=== PATIENT | male | born 1945 | race Caucasian/White ===

== ENCOUNTER 2016-10-13 14:31 | Inpatient (IN) | payer MEDICARE, MEDICAID ==
[~2016-10-13] VITALS: Ht 172.7 cm; Wt 74.1 kg
[2016-10-13 14:31] VITALS: BP 67/48; PULSE 120; RESP 18; O2SAT 97
[~2016-10-13 14:31] MED LIST: ALBU18HF IH; ASPI81TA2 PO; CARV3125 PO; CLOP75TA14 PO; FURO80TA PO; POTA20TA16 PO; SPIR25TA PO; WARF4TAB2 PO; ZES5 PO
--- NOTE | 2016-10-13 14:41 | ED.REPORT ---
HPI-Abd Pain M 40 and Over Date of Service Oct 13, 2016 ED Provider: Dr. Ch Pt is a 71 year old male with a hx of CVA, CHF, and HTN presenting to the ED via EMS due to vomiting blood onset today. Associated symptoms include diarrhea and abdominal pain. He denies any SOB. Pt is currently being treated for C. diff. Nursing Notes Stated Complaint: VOMITING BLOOD, DIARRHEA Chief Complaint: Male Abdominal Pain Nursing Notes Reviewed: Yes Allergies: Coded Allergies: acetaminophen (Verified Allergy, Unknown, 10/13/16) Scheduled Aspirin-Expunged Drug, Do Not Renew! (Aspirin-Expunged Drug, Do Not Renew!) 81 Mg Tablet 81 MG PO DAILY Carvedilol-Expunged Drug, Do Not Renew! (Carvedilol-Expunged Drug, Do Not Renew! ) 3.125 Mg Tablet 3.125 MG PO BID Clopidogrel-Expunged Drug, Do Not Renew! (Plavix-Expunged Drug, Do Not Renew!) 75 Mg Tablet 75 MG PO DAILY Furosemide-Expunged Drug, Do Not Renew! (Lasix-Expunged Drug, Do Not Renew!) 80 Mg Tablet 80 MG PO DAILY Lisinopril-Expunged Drug, Do Not Renew! (Lisinopril-Expunged Drug, Do Not Renew! ) 5 Mg Tablet 5 MG PO BID Potassium Chl-Expunged Drug, Do Not Renew! (V-Wot-Honjizyr Drug, Do Not Renew!) 20 Meq Tab.prt.sr 20 MEQ PO BID Spironolactone-Expunged Drug, Do Not Renew! (Spironolactone-Expunged Drug, Do Not Renew!) 25 Mg Tablet 12.5 MG PO BID Warfarin Sodium Inactive Drug Do Not Use (Coumadin Inactive Drug Do Not Use) 4 Mg Tablet 4 MG PO DAILY Scheduled PRN Albuterol-Expunged Drug, Do Not Renew! 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 Past Surgical History denies Smoking History Never Smoker Social History Alcohol Use: Denies alcohol use Other Social History: Ambulatory Status Wheelchair Review of Systems Unable to Obtain ROS Patient condition, Mental status Physical Exam Initial Vital Signs Vital Signs (First) Date Time Temp Pulse Resp B/P Pulse Ox O2 Delivery O2 Flow Rate FiO2 10/13/16 14:31 36.7 120 18 67/48 97 Room Air Initial VS: Reviewed, Vital signs abnormal Head / Eyes: Atraumatic, Normocephalic, PERRL Neck: Supple, Non-tender, Full range of motion Extremities: Vascular intact, Neuro intact, No swelling, No tenderness Skin: Warm, Dry, No cyanosis General/Constitutional: Awake, Alert Appearance / Presentation: Positive: Pale Nonverbal but shakes his head yes and no to questions. Respiratory / Chest: Breath sounds NL, Breath sounds = bilat, No respiratory distress, No rales, No rhonchi, No wheezing Cardiovascular: Regular rhythm Heart Rate / Rhythm: Positive: Tachycardia Abdomen: Soft, Non-tender, No distention ENT: Atraumatic Mouth: Positive: Mucous membranes dry Dried blood in the oropharynx. Rectum / Perineum: Atraumatic Rectal for Blood: Positive: Blood - occult heme + Neurologic: No sensory deficits No movement to left upper extremity Re-Eval/Medical Decision Med Decision/Clinical Course Spoke to the patient's . She states that she does not want him to have any blood products or pressors. She would like him to have fluids and medication. The patient has an upper GI bleed and is hypotensive upon arrival. He is complaining of epigastric pain. In looking at his Polst and speaking with his he is comfort measures only. The patient was given IV morphine as well as IV fluids. I spoke with the on 2 occasions, she is on her way to the hospital. Time of Eval: 15:57 Patient Status: Condition improved Re-Evaluation/Progress Note: Pt pain slightly improved. Discussed plan for admission. Consultation : Referral / Consult Name: Walker Whitlock DO Consulted With: Hospitalist Call Returned at: 16:25 Sr. Payroll Manager: Will see patient, Agrees with plan, Accepts admit Counseled Regarding: Diagnosis, Lab results, Need for follow-up, When/why to return to ED Discharge & Departure Primary Impression: GI bleed GI bleed type/associated pathology: unspecified gastrointestinal hemorrhage type Qualified Code: K92.2 - Gastrointestinal hemorrhage, unspecified Disposition: ADMITTED TO HOSPITAL Vital Signs - All Vital Signs Date Time Temp Pulse Resp B/P Pulse Ox O2 Delivery O2 Flow Rate FiO2 10/13/16 15:45 113 30 75/51 97 Room Air 10/13/16 14:31 36.7 120 18 67/48 97 Room Air )( All Prior VS Reviewed: Yes Condition: Improved Referrals: Barron Doss MD (PCP) Scribe Attestation Portions of this note were transcribed by Yina Barrios. I, Dr. Ch personally performed the history, physical exam and medical decision-making; I reviewed and confirmed the accuracy of the information in the transcribed note. Signed by : Ronaldo Dawson, 10/13/2016 and 1648. copies to: Barron Doss MD, Jena M MD Oct 13, 2016 14:41 YINA BARRIOS Oct 13, 2016 14:55
[2016-10-13] MEDS ORDERED: 0.9% Sodium Chloride 1,000 ML IV ONE ×2 (14:55→16:30)
[2016-10-13] MEDS ORDERED: Pantoprazole 4 mg/mL 10 mL Inj IVPUSH ONE (14:55)
[2016-10-13 15:45] VITALS: BP 75/51; PULSE 113; RESP 30; O2SAT 97
[2016-10-13] MEDS ORDERED: Haloperidol 5 mg/mL Inj IVPUSH PRN (16:35)
[2016-10-13] MEDS: 0.9% Sodium Chloride 1,000 ML IV SCH ×2 (16:35→23:38)
[2016-10-13 17:11] VITALS: BP 106/62; PULSE 104; RESP 20; O2SAT 96
--- NOTE | 2016-10-13 17:49 | NUR ---
Admission Pt arrived on [facility] to Rm 3003. Pt non verbal, however does respond to yes/no questions appropriately.No complains of increased pain. Alert to name. Christiana (spouse) is at bedside. Pt blind in left eye, left arm flaccid, left leg contracted. G tube on L abdomen.
[2016-10-13 17:50] VITALS: BP 102/67; PULSE 95; RESP 20; O2SAT 96
--- NOTE | 2016-10-13 17:55 | PCM.HPMED ---
Subjective Date of Service Oct 13, 2016 Primary Provider: Admitting Physician: Walker Whitlock DO Primary Care Physician: Barron Doss MD Attending Physician: Walker Whitlock DO Chief Complaint: GI bleed History of Present Illness: Max Pitt is a 71 year old non-verbal man with past medical history significant for CVA with left sided deficits requiring a PEG tube. History could not be obtained from the patient. He can show limited hand gestures and nod "yes" or "no." The patient was brought in to [facility] ED via EMS from his senior care due to hematemesis and melena and diarrhea that started today. The patient denied any shortness of breath but did note abdominal pain. Per discussion with ED physician the patient's DPOA, his , does not want to proceed with any invasive procedures and would only like to carry on with IV fluids and medications. She would not like to give him any blood products or check labs. The patient is currently under treatment for C. Difficile. In the ED he was noted to be hypotensive and was given one L of NS. Review of Systems: A review of systems could not be conducted thoroughly as the patient only answers limited questions and could not understand everything. Allergies Coded Allergies: acetaminophen (Verified Allergy, Unknown, 10/13/16) "Made him dizzy, he didn't like the way it made him feel." per pts Home Medications Per ER report: Scheduled Aspirin-Expunged Drug, Do Not Renew! (Aspirin-Expunged Drug, Do Not Renew!) 81 Mg Tablet 81 MG PO DAILY Carvedilol-Expunged Drug, Do Not Renew! (Carvedilol-Expunged Drug, Do Not Renew! ) 3.125 Mg Tablet 3.125 MG PO BID Clopidogrel-Expunged Drug, Do Not Renew! (Plavix-Expunged Drug, Do Not Renew!) 75 Mg Tablet 75 MG PO DAILY Furosemide-Expunged Drug, Do Not Renew! (Lasix-Expunged Drug, Do Not Renew!) 80 Mg Tablet 80 MG PO DAILY Lisinopril-Expunged Drug, Do Not Renew! (Lisinopril-Expunged Drug, Do Not Renew! ) 5 Mg Tablet 5 MG PO BID Potassium Chl-Expunged Drug, Do Not Renew! (X-Ybg-Pdoobfgy Drug, Do Not Renew!) 20 Meq Tab.prt.sr 20 MEQ PO BID Spironolactone-Expunged Drug, Do Not Renew! (Spironolactone-Expunged Drug, Do Not Renew!) 25 Mg Tablet 12.5 MG PO BID Warfarin Sodium Inactive Drug Do Not Use (Coumadin Inactive Drug Do Not Use) 4 Mg Tablet 4 MG PO DAILY Scheduled PRN Albuterol-Expunged Drug, Do Not Renew! (Albuterol-Expunged Drug, Do Not Renew!) 200 Puff/18 Gm Hfa.aer.ad 200 PUFF IH Q6 PRN PRN PMH HTN CVA February 2015 resulting in nonverbal and left hemiparesis Surgical History None reported Family History Unable to obtain Social History Hx Alcohol Use: No Hx Substance Use: No Hx Tobacco Use: No Smoking Status: Never Smoker Exam Vital Signs Vital Sign - Last Date Time Temp Pulse Resp B/P Pulse Ox O2 Delivery O2 Flow Rate FiO2 10/13/16 17:11 104 20 106/62 96 Room Air 10/13/16 14:31 36.7 Exam General: No acute distress, chronically ill appearing elderly male. HEENT: Normocephalic, atraumatic. External ears without defect. Pupils equal, round, and reactive to light and accommodation. Anicteric sclerae, moist conjunctivae, and no lid lag. Oropharynx free of erythema and cobble stoning with dry mucosa. Teeth absent. Neck: Supple with full range of motion. No jugular venous distension. No bruits. No lymphadenopathy or thyromegaly. Cardiovascular: Regular rate and rhythm with no murmurs, rubs, or gallops appreciated Pulmonary: Clear to auscultation bilaterally with no crackles, wheezes, or rhonchi. Normal respiratory effort with no use of accessory muscles. Abdomen: Hyperactive bowel tones present. Soft, nondistended. Tender to palpation. No hepatosplenomegaly or masses appreciated. Extremities: No clubbing, cyanosis, edema, or lymphadenopathy appreciated. Skin: Normal temperature, turgor, and texture; no rash, ulcers, or subcutaneous nodules appreciated. Neurological: Cranial nerves grossly intact. Left sided contractures. Psychiatric: Non-verbal. Assessment & Plan Max Pitt is a 71 year old non-verbal man with past medical history significant for CVA with left sided deficits requiring a PEG tube. History could not be obtained from the patient. He can show limited hand gestures and nod "yes" or "no." The patient was brought in to [facility] ED via EMS from his senior care due to hematemesis and melena and diarrhea that started today. Acute GI bleed, likely upper, present on admission -No labs completed as the patient's would not like to proceed with treatment -No blood products to be given -Patient admitted to comfort care -Morphine, Ativan, Haldol as needed for comfort measures -NS @150 cc/hr while the patient's arrives CVA with left sided-deficits -Patient has PEG tube -Will continue to feed patient as the patient's appears to want to continue with medications CODE STATUS: DNR/DNI Admit patient to inpatient status with anticipated length of stay >2 midnights due to severity of the patient's illness. Time spent 50 minutes Attending Statement I have seen and evaluated patient at bedside in addition to directly supervising care provided by resident physician. I agree with above documentation. Luz Marina Dowd DO Oct 13, 2016 17:54 Walker Whitlock DO Oct 14, 2016 08:43
--- NOTE | 2016-10-13 23:00 | NUR ---
SKIN Pt had multiple skin issue occurrences w/ initial head to toe assessment. Pt has brownish discolorations on buttocks and sacrum. Pt had reddened, blancheable areas on L medial elbow, L lateral knee, and L lateral malleolus--Mepilex dressings applied. Pt has hx of CVA w/ Left sided deficit. Pt had small abrasion-like redness on L anterior knee below patella. Pt also had redness on bottoms of feet and heels. Pt has been placed on P500 bed w/ Q2H turning. Continue to monitor.
[2016-10-13] MEDS ORDERED: METO25TA6 G-TUBE (23:27)
[2016-10-13] MEDS ORDERED: NITR0.4T6 SL (23:27)
[2016-10-13] MEDS ORDERED: PROBIOTIC G-TUBE (23:27)
[2016-10-13] MEDS ORDERED: GABA-502 G-TUBE (23:27)
[2016-10-13] MEDS ORDERED: ASPI325T32 G-TUBE (23:27)
[2016-10-13] MEDS ORDERED: BACL20TA G-TUBE (23:27)
[2016-10-13] MEDS ORDERED: LISI-567 G-TUBE (23:27)
[2016-10-13] MEDS ORDERED: MULT-1018 G-TUBE (23:27)
[2016-10-13] MEDS ORDERED: FUR20 G-TUBE (23:27)
[2016-10-13] MEDS ORDERED: LORA-302 G-TUBE (23:44)
[2016-10-13] MEDS ORDERED: DEXT1DRO8 BOTH_EYES (23:44)
[2016-10-13] MEDS ORDERED: FLUO20SO G-TUBE (23:44)
[2016-10-13] MEDS ORDERED: ZOF8 PO (23:44)
[2016-10-13] MEDS ORDERED: POLY17PO6 G-TUBE (23:44)
[2016-10-13] MEDS ORDERED: BISA-67 G-TUBE (23:44)
[2016-10-13] MEDS ORDERED: ASPI325T32 PO (23:44)
[2016-10-13] MEDS ORDERED: LORA2VIA28 G-TUBE (23:44)
[2016-10-13] MEDS ORDERED: ALBU2.5V4 INHALATION (23:44)
[2016-10-13] MEDS ORDERED: LOPE2TAB32 G-TUBE (23:44)
[2016-10-13] MEDS ORDERED: QUE9 G-TUBE (23:52)
[2016-10-13] MEDS ORDERED: LACT10SO27 G-TUBE (23:52)
[2016-10-13] MEDS ORDERED: SENN176S G-TUBE (23:54)
[2016-10-13] MEDS ORDERED: ASCO-294 G-TUBE (23:54)
[2016-10-14] MEDS ORDERED: Ondansetron 2 mg/mL 2 mL Inj IVPUSH PRN (01:05)
--- NOTE | 2016-10-14 01:40 | NUR ---
STOOLS & EMESIS Pt has had dark liquid stools x 2, incontinent. At approx 0100, pt retching. RN went into room, pt had vomited small amt of bright red blood. NOC resident called for prn Zofran. Pts called to notify of change in pts status. Pts wishes to start pt on Morphine gtt. Pts will be coming. NOC resident requested to be paged when pts arrives so that further discussion regarding comfort care can be addressed. Pt given prn IV Morphine, Zofran and Ativan. Pt is no longer vomiting at this time. Pts HOB up, pt resting at this time. Continue to monitor.
[2016-10-14] MEDS: Morphine 100 mg/100 mL NS 100 MG in IV Premix 1 EACH IV SCH (04:13)
[2016-10-14] MEDS: 0.9% Sodium Chloride 1,000 ML IV SCH (06:18)
--- NOTE | 2016-10-14 08:00 | NUR ---
Comfort care Pt resting quietly, appears comfortable, no signs of pain or agitation. Resp rate=18. HR=82. Morphine gtt infusing at 2.5 mg per hour. Repositioning for comfrt. No vitals at request of Christiana (spouse) will continue to monitor.
--- NOTE | 2016-10-14 10:45 | NUR ---
Tachypnea Pt repositioned, resp rate 24, 2 mg of IV morphine given IV push. Pt appears comfortable, will continue to monitor, Addendum: 10/14/16 at 1228 by ZEENAT JOY RN RR =24. 1 mg Ativan given IV push. Reassessment of RR = 18. Will continue to monitor, family at bedside.
--- NOTE | 2016-10-14 14:14 | PCM.PNMED ---
Subjective Date of Service Oct 14, 2016 Subjective Max Pitt is a 71 year old non-verbal man with past medical history significant for CVA with left sided deficits requiring a PEG tube. History could not be obtained from the patient. Hospital day #2. Patient's , Christiana, is at bedside. She requested that the patient not receive IV fluids and that he receives only medications to make him comfortable. Exam Vital Signs Vital Sign - Last Date Time Temp Pulse Resp B/P Pulse Ox O2 Delivery O2 Flow Rate FiO2 10/13/16 17:50 37.2 95 20 102/67 96 Room Air Intake and Output 10/13/16 10/13/16 10/14/16 Cumulative From/Thru 15:00 23:00 07:00 10/13/16 14:31 - 10/14/16 05:22 Intake Total 2000 ml 570 ml 2570 ml Balance 2000 ml 570 ml 2570 ml Intake Oral 0 ml 0 ml IV Total 2000 ml 570 ml 2570 ml # Voids 1 1 # Bowel Movements 5 5 Exam General: Obtunded, chronically ill appearing elderly male. HEENT: Dried blood at oropharynx with dry mucosa. Teeth absent. Neck: Supple. Cardiovascular: Regular rate and rhythm with no murmurs, rubs, or gallops appreciated Pulmonary: Clear to auscultation bilaterally with no crackles, wheezes, or rhonchi. Decreased respiratory effort with no use of accessory muscles. Abdomen: Hyperactive bowel tones present. Soft, nondistended. Extremities: No clubbing, cyanosis, or edema appreciated. Skin: Normal temperature, turgor, and texture Neurological: Left sided contractures. Psychiatric: Non-verbal. IVs and Medications Medications Reviewed: Medications were reviewed in detail Assessment & Plan Max Pitt is a 71 year old non-verbal man with past medical history significant for CVA with left sided deficits requiring a PEG tube. History could not be obtained from the patient. He can show limited hand gestures and nod "yes" or "no." The patient was brought in to [facility] ED via EMS from his correction due to hematemesis and melena and diarrhea that started today. Acute GI bleed, likely upper, present on admission -No labs completed as the patient's would not like to proceed with treatment -No blood products to be given -Patient admitted to comfort care -Morphine, Ativan, Haldol as needed for comfort measures -Stopped normal saline at request of patient's -Benadryl as needed -Continue comfort care measures CVA with left sided-deficits -Patient has PEG tube CODE STATUS: DNR/DNI Time spent 25 minutes Attending Statement I have seen and evaluated patient in addition to directly supervising care provided by resident physician. I agree with above documentation Shannon Renteria DO Oct 14, 2016 14:14 Walker Whitlock DO Oct 14, 2016 17:19
--- NOTE | 2016-10-14 14:23 | NUR ---
Morphine gtt IV morphine BT dose given x 2 in last 3 hours. Per Protocol Morphine gtt increased to 3 mls per hr. Will continue to monitor
[2016-10-14] MEDS ORDERED: Acetaminophen IV 1,000 MG in IV Premix 1 EACH IV ONE (14:40)
--- NOTE | 2016-10-14 14:41 | NUR ---
Temp Vital taken at request of Christiana. Temp of 101.8, made aware. New order for IV Tylenol given. Listed as allergy, Reviewed with Christiana, (spouse) reports, extra strength OTC generic Rx made "pt feel weird, kind of woozy and light headed". Christiana okay with Rx being given, Will continue to monitor Addendum: 10/14/16 at 1738 by ZEENAT JOY RN IV Tylenol given, re-assessment of temp = 101.9. Cool cloth placed on pt forehead, fan in room on low, sheet only over pt. Will continue to monitor
--- NOTE | 2016-10-14 16:07 | NUR ---
Social Work-attempted assessment: Data:EMR Reviewed. PT is a 71 y/o male who was admitted on 10/13/16 of upper GI Bleed per H&P. Pt's insurance is [facility] and [facility] supp and PCP is Barron Doss MD. EMR Reviewed. PT's readmission score is 2. SW attempted to complete assessment today. SW updated by floor SW that pt has been placed on comfort care and anticipated to pass at [facility]. SW will continue to follow. Assessment:Pt who is on comfort care. Plan:Pt who is on comfort care,anticipated to pass at [facility]. SW will continue to follow. JOHANNE Camara
[2016-10-14 20:19] VITALS: PULSE 68; RESP 18
[2016-10-14 22:19] VITALS: RESP 20
[2016-10-15] VITALS (7 sets, daily range): BP systolic 75; BP diastolic 50; PULSE 64–104; RESP 20–28; O2SAT 83–97
--- NOTE | 2016-10-15 06:38 | NUR ---
Comfort care Pt unresponsive throughout the shift, pt has been unresponsive since yesterday am per , no spontaneous movement except moving mouth when doing oral care. No agitation noted. RR18-20,shallow, regular at the beginning of the shift, progressively tachypnea RR 20-28, joaquin-chau with a few seconds pause sometimes. Morphine drip 3mg/hr, breakthrough doses given 3mgx2 for RR 24,RR down to 20 after 2 dozes. Bolus given 6mgx1,3mgx1 For RR 26-28 via IVBP (unable to scan and document of breakthrough dozes due to no such an order available at [facility]), bolus doses verified by charge nurse Aisha Corral, RR down to 20 at this time. SPO2 92-98% on RA most night, O2 2l applied this am for comfort. HR 60s-70s, very weak pulse, pale. No S/S of N/V/Abd discomfort. Incontinent bladder/bowel, black tarry stoolx3, mixed with urine, brief changed. T38.2,cold wash cloth applied on forehead. No s/s pain observed. Oral care and repositioning for comfort and per permission.
--- NOTE | 2016-10-15 10:54 | NUR ---
Social Work-initial assessment/ readiness for discharge: Data:See initial assessment. Pt is a 81 y/o male who was admitted on 10/13/16 for upper GI Bleed per H&P. Pt's insurance is [employer] and [employer] supp and PCP Is Barron Doss MD. EMR reviewed. Pt's readmission score is 2. 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 Pt does not have exterminator helper termite [employer] insurance or [place] benefits. DPOA/ advanced directive requested from the . SW spoke with Isabel at [facility] who confirms they would be able to accept pt back. Pt is on comfort care. Palliative care saw pt today and feel like he will likely pass within 24 hours. Paperwork placed in the chart. SW will continue to follow. Assessment:Pt who is on comfort care. Plan:Anticipate pt to pass at [facility], pt is on comfort care. Pt does come from [facility] SNF. Paperwork placed in the chart. SW will continue to follow. JOHANNE Camara Addendum: 10/15/16 at 1058 by MARYJANE GATES Amended: Links added.
--- NOTE | 2016-10-15 11:16 | NUR ---
Palliative Care Palliative Care received verbal order from Dr Dowd 10/15/16 to assist with possibly ?goals of care vs ?family support. Patient is a 71 year old non-verbal man with hx of CVA with left sided deficits requiring a PEG tube. He was admitted from his SNF 10/13/16 for care of acute GI bleed. Patient is on comfort care and is expected to pass at [facility]. Patient resides at [facility]. Christiana Pitt () [phone], Amanda Jess (daughter) [phone], Palliative Care to follow. Stephani Moy
--- NOTE | 2016-10-15 11:18 | NUR ---
Wound Care [facility] patient seen for evaluation of red area to left elbow and left lateral knee. Patient on comfort care at this time. Areas gently assessed with no evidence of pain to patient. Areas covered with Mepilex at this time. Patient found with blanchable redness to left elbow and hypopigmented area to lateral left knee. Both areas appear to be scar tissue from previous skin injury. Patient with heels and left elbow floated. Recommend continued use of Mepilex to protect and continued floating of heels for protection. Patient also currently using P500 bed. No further wound care recommendations at this time. Please reconsult wound care if further needs arise. Addendum: 10/15/16 at 1122 by LESLIE SETHI Addendum - red area to left elbow and hypopigmented area to lateral left knee are not pressure ulcers at this time.
[2016-10-15] MEDS ORDERED: Acetaminophen IV 1,000 MG in IV Premix 1 EACH IV PRN (11:40)
[2016-10-15] MEDS: Morphine 100 mg/100 mL NS 100 MG in IV Premix 1 EACH IV SCH (11:45)
--- NOTE | 2016-10-15 11:49 | PCM.CONPAL ---
Date of Service Oct 15, 2016 Date of Hospital Admission: Oct 13, 2016 at 16:55 Date of Palliative Consult: Oct 15, 2016 Requesting Provider: Luz Marina Dowd DO Reason Palliative Care Consult: Other Symptoms, Goals of Care Discussion Hospital Unit @time of consult: Medical/Pediatric Care Palliative Care Recommendation Summary of palliative recommendations: -Symptom management (Pain/other) GI bleed but patient seems to be actively dying. Will meet with his that afternoon. GOC seem set for comfort measures. Will continue his IV morphine and add IV acetaminophen PRN Option re returning to [place]-would require changing from IV to PEG meds and I suspect he will before this could be accomplished and observed. Reviewed goal of continuing IV medications with both patient's and case management. Health care team including nursing believes patient is likely to in the next 24 hours -DPOA/Advanced Directives/POLST-DNR/DNI and comfort care -Family/emotional support-His but also many friends and family visiting -Spiritual support-his has extensive support from family as well as her orthodoxy Problems: End of Life Preferences Comfort care and end-of-life Resuscitation Status Resuscitation Status: DNR/DNI:Do Not Resuscitate/Intubate Limited Interventions: Medications and IV Fluid POLST Updates/Changes Artificially Admin Nutrition: No Artifical Nutrition by Tube (feedings have been discontinued) POLST Discussed with: Health Care Agent (DPOAHC), Spouse/Other . Advanced Care Planning Address: Comfort care Symptom management: Nausea, Pain Pt History History of Present Illness Max Pitt is a 71 year old non-verbal man with past medical history significant for CVA with left sided deficits requiring a PEG tube. History could not be obtained from the patient. He can show limited hand gestures and nod "yes" or "no." The patient was brought in to [facility] ED via EMS from his skilled nursing due to hematemesis and melena and diarrhea that started today. The patient denied any shortness of breath but did note abdominal pain. Per discussion with ED physician the patient's DPOA, his , does not want to proceed with any invasive procedures and would only like to carry on with IV fluids and medications. She would not like to give him any blood products or check labs. The patient is currently under treatment for C. Difficile. In the ED he was noted to be hypotensive and was given one L of NS. PALLIATIVE CARE NOTE 71 yo patient who was nonverbal on admit but apparently able to make some interactions admitted for GI bleed. Decision by his based on his poor QOL was to do no evaluation and treat for comfort only. He has not had labs, is now on IV MS for comfort and BP has declined. His is not available at this time for discussion-her stated goal to staff was for comfort and if could not be on present comfort meds at [place] then asked that he be allowed to here. I presume the plan was to see if he improved with just fluids but he has continued to deteriorate and is now febrile. 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 EF 15-20%--improved to 40-45% with followup CVA with PEG placement 2014 Social History Occupation: retired Social Support: Living Situation: LTC at [facility] since CVA 2014 Spiritual Support Spiritual Support not obtainable Responsive Patient Symptoms Nausea: Moderate Delirium at baseline Other admitted with NV and diarrhea and evidence of gross GI bleed Palliative Performance Scale PPS Patient Status: Current PPS Ambulation: Totally Bed PPS Self-Care: Total Care Performance Scale: 10% Allergy Allergies Reviewed: Yes (acetaminophen-said to cause dizziness but has tolerated IV dosing since admit) Medications Current Medications: Current Medications Morphine Sulfate 2 mg 2 mg Q15M PRN IVPUSH Last administered on 10/14/16 01:02 ; Admin Dose 2 MG; Start 10/13/16 at 14:55; Stop 10/14/16 at 03:48; Status DC Sodium Chloride 1,000 ml @ 150 mls/hr Q6H40M IV Last administered on 10/13/16 16:35; Admin Dose 150 MLS/HR; Start 10/13/16 at 16:35; Stop 10/14/16 at 12:38; Status DC Morphine Sulfate 1-2 mg Q15M PRN IVPUSH; Start 10/13/16 at 16:35; Stop at 03:56; Status DC Lorazepam 1 mg Q4H PRN IVPUSH Last administered on 10/14/16 11:47; Admin Dose 1 MG; Start 10/13/16 at 16:35 Haloperidol Lactate give 1 or 2 depend... Q4 PRN IVPUSH Last administered on 05:01; Admin Dose 2 MG; Start 10/13/16 at 16:35 Ondansetron HCl 4 mg Q8H PRN PO; Start 10/14/16 at 01:00 Ondansetron HCl 4 mg Q4H PRN IVPUSH Last administered on 10/14/16 01:10; Admin Dose 4 MG; Start 10/14/16 at 01:05 Morphine Sulfate 2 mg Q1H PRN IVPUSH Last administered on 10/14/16 16:22; Admin Dose 2 MG; Start 10/14/16 at 03:50 Lorazepam 2 mg Q5M PRN IVPUSH; Start 10/14/16 at 03:50 Diphenhydramine HCl 25 mg Q6H PRN IVPUSH; Start 10/14/16 at 12:10 Scheduled ([liquid probiotic]) 30 ML G-TUBE BID Ascorbate Calcium (Vitamin C) 500 Mg Tablet 500 MG G-TUBE DAILY Aspirin (Aspirin) 325 Mg Tablet 325 MG G-TUBE DAILY Baclofen (Baclofen) 20 Mg Tablet 20 MG G-TUBE TID Fluoxetine Oral Soln (Fluoxetine Oral Soln) 20 Mg/5 Ml Solution 40 MG G-TUBE DAILY Furosemide (Furosemide) 20 Mg Tab 20 MG G-TUBE Q2DAY Gabapentin (Gabapentin) 300 Mg Capsule 300 MG G-TUBE BID Lisinopril (Lisinopril) 20 Mg Tablet 20 MG G-TUBE DAILY Metoprolol Tartrate (Metoprolol Tartrate) 25 Mg Tablet 12.5 MG G-TUBE BID Multivitamin (Multi Vitamin Daily) 1 Each Tablet 1 EACH G-TUBE DAILY Scheduled PRN Albuterol Neb Soln (Albuterol Neb Soln) 2.5 Mg/3 Ml Vial.neb 2.5 MG INHALATION Q4H PRN PRN For Shortness of Breath Aspirin (Aspirin) 325 Mg Tablet 650 MG PO PRN HIGH TEMP Bisacodyl (Dulcolax) 5 Mg Tablet.dr 5 MG G-TUBE DAILY PRN PRN For Constipation Cholestyramine (Cholestyramine Packet) 4 Gm Packet 4 GM G-TUBE DAILY PRN PRN For Diarrhea or Loose Stool Dextran 70/Hypromellose/Pf (Artificial Tears Drops) 1 Each Droperette 1 DROP BOTH_EYES TID PRN PRN For Eye Irritation Lactulose (Lactulose) 10 Gm/15 Ml Solution 10 GM G-TUBE QID PRN PRN For Constipation Loperamide (Loperamide) 2 Mg Tablet 2 MG G-TUBE Q4H PRN PRN For Diarrhea or Loose Stool Lorazepam (Ativan) 2 Mg/1 Ml Vial 2 MG G-TUBE Q2H PRN PRN For Seizure Lorazepam (Ativan) 0.5 Mg Tablet 0.5 MG G-TUBE Q2H PRN PRN For Anxiety Nitroglycerin SL (Nitroglycerin SL) 0.4 Mg Tab.subl 0.4 MG SL Q5MIN x 3 doses PRN PRN For Chest Pain Ondansetron (Zofran) 8 Mg Tablet 8 MG PO Q8H PRN PRN For Nausea Polyethylene Glycol 3350 (Miralax) 17 Gm Powd.pack 17 GM G-TUBE DAILY PRN PRN Abdominal Cramps Senna [place] Extract (Senna) 176 Mg/5 Ml Syrup 352 MG G-TUBE DAILY PRN PRN Bowel Management Objective Findings Exam Vital Sign - Last Date Time Temp Pulse Resp B/P Pulse Ox O2 Delivery O2 Flow Rate FiO2 10/15/16 10:56 39.1 104 24 75/50 83 Room Air 10/15/16 06:04 2.00 Intake and Output 10/14/16 10/14/16 10/15/16 Cumulative From/Thru 15:00 23:00 07:00 10/13/16 14:31 - 10/15/16 06:06 Intake Total 0 ml 504 ml 3074 ml Balance 0 ml 504 ml 3074 ml Intake Oral 0 ml 0 ml IV Total 504 ml 3074 ml # Voids 0 1 # Bowel Movements 2 7 Objective BP 75-88/ now febrile General: Unresponsive Heart: Dysrhythmia Present, Other (no radial or pedal pulses noted) Lungs: Diminished Abdomen: Soft, PEG/Feeding tube in place (but receiving no medications or fluids and nourishment through tube) Extremities: No Edema Skin: Wounds/Lacerations (covered on L elbow and L hip) Lab/Diagnostics Lab and Imaging results reviewed in detail in EMR. Patient/Family Conference Members Present Family Members Present Medical Team Members Present? Shaneka AVILA PC Discussion/Goals of Care Discussion FAMILY UNDERSTANDING OF DISEASE: Patient's well aware of severity of disease terminal state and that the patient is actively dying. Her request is comfort only. She does not believe that further intervention and treatment to be would be to his benefit. She recounts that he had been on hospice and pain management through his PEG tube took a couple of weeks to be on top of. She hopes that he can be managed in hospital with IV morphine. Time spent Total time 50 minutes; >50% face to face with patient and/or family, providing counselling regarding plans and recommendations, and in care coordination with his/her medical teams. Including review of med management, discussion with his . I also spent an additional [ ] minutes counseling for advanced care planning with the patient/the patients family/the surrogate decision maker. copies to: Barron Doss MD, Deborah A MD Oct 15, 2016 11:48 I also spent an additional [ ] minutes counseling for advanced care planning with the patient/the patients family/the surrogate decision maker. Anna Francis MD Oct 15, 2016 11:48
--- NOTE | 2016-10-15 12:48 | NUR ---
Resp Rate Pt resp rate = 24, 3 mg morphine given IV push per comfrt care orders. Pt resting quietly, appears comfortable, will continue to monitor.
--- NOTE | 2016-10-15 16:04 | PCM.PNMED ---
Subjective Date of Service Oct 15, 2016 Subjective Max Pitt is a 71 year old non-verbal man with past medical history significant for CVA with left sided deficits requiring a PEG tube. History could not be obtained from the patient. Hospital day #3. Patient's , Crhistiana, is at bedside. Patient remains unresponsive. Exam Vital Signs Vital Sign - Last Date Time Temp Pulse Resp B/P Pulse Ox O2 Delivery O2 Flow Rate FiO2 10/15/16 10:56 39.1 104 24 75/50 83 Room Air 10/15/16 06:04 2.00 Intake and Output 10/14/16 10/14/16 10/15/16 Cumulative From/Thru 15:00 23:00 07:00 10/13/16 14:31 - 10/15/16 06:06 Intake Total 0 ml 504 ml 3074 ml Balance 0 ml 504 ml 3074 ml Intake Oral 0 ml 0 ml IV Total 504 ml 3074 ml # Voids 0 1 # Bowel Movements 2 7 Exam General: Obtunded, chronically ill appearing elderly male. HEENT: Dry mucosa. Teeth absent. Neck: Supple. Cardiovascular: Regular rate and rhythm with no murmurs, rubs, or gallops appreciated Pulmonary: Clear to auscultation bilaterally with no crackles, wheezes, or rhonchi. Decreased respiratory effort with no use of accessory muscles. Abdomen: Hyperactive bowel tones present. Soft, nondistended. Extremities: No clubbing, cyanosis, or edema appreciated. Skin: Normal temperature, turgor, and texture Neurological: Left sided contractures. Psychiatric: Non-verbal, unresponsive. IVs and Medications Medications Reviewed: Medications were reviewed in detail Assessment & Plan Max Pitt is a 71 year old non-verbal man with past medical history significant for CVA with left sided deficits requiring a PEG tube. History could not be obtained from the patient. He can show limited hand gestures and nod "yes" or "no." The patient was brought in to [facility] ED via EMS from his intermediate due to hematemesis and melena and diarrhea that started today. Acute GI bleed, likely upper, present on admission -No labs completed as the patient's would not like to proceed with treatment -No blood products to be given -Patient admitted to comfort care -Morphine, Ativan, Haldol as needed for comfort measures -Stopped normal saline at request of patient's -Benadryl as needed -Continue comfort care measures -Palliative care consulted and following. Their time and recommendations are appreciated. CVA with left sided-deficits -Patient has PEG tube CODE STATUS: DNR/DNI VTE Mechanical Devices: Intermittant Pneumatic CD Resuscitation Status: DNR/DNI:Do Not Resuscitate/Intubate Limited Interventions: Medications and IV Fluid Attending Statement The patient was seen and examined together with Resident/House-staff on 10/15/16 and I agree with the history, exam and plan as outlined in the note above. Shannon Renteria DO Oct 15, 2016 16:04 Saad Ribera Oct 16, 2016 18:01
--- NOTE | 2016-10-15 16:53 | NUR ---
spiritual care: pt request caring visit. pt's spouse notifying family and friends, well supported. Pt appears comfortable. blessing
--- NOTE | 2016-10-15 18:00 | NUR ---
Resp Rate/temp Resp rate of 24 noted. 3 Mg IV morphine given IV push per comfort care protocol. Reassessment of RR = 24. 3 mg IV morphine and 1 mg IV Ativan given. Pt continues to remain febrile. [facility] has declined offer of IV Tylenol as pt appears to be comfortable without. Ice pack placed at back of neck for comfrt. Will continue to monitor.
--- NOTE | 2016-10-15 22:23 | NUR ---
MORPHINE GTT WASTAGE At 2220, 1mg/1ml of Morphine Sulfate gtt wasted, 80ml (80mg), w/ 2 RNs. Misc med/narc not an option to waste in [facility].
--- NOTE | 2016-10-15 22:41 | NUR ---
PT Pt at 2100, 2 RNs confirmed. Family present at time of . No personal belongings w/ pt. [facility] in [place] notified per pts request, spoke w/ Brigid at [facility] @ 2154. Pharmacy, admitting, attending hospitalist, and cleaning supervisor also notified. Family does not have home arrangements at this time. All family that was present left [facility] @ approx 2200. No further family/friends are expected to arrive to [facility]. Natalie at Donation line called @ 2124. Given Ref #[id number], and was told that RN would be called back w/ further donation questions. At 2154, no call rec'd, Donation Line called again, spoke emmanuel/ Natalie, who stated "They are very busy tonight, I will page them again." At this time (2234), no call has been made to [facility] regarding further donation information. Addendum: 10/15/16 at 2319 by ALEXANDRA BYRD RN Spoke emily Arvizu regarding donation @ 2302. At the end of conversation @ 2315, per Luh, most like pt will not be eligible for tissue donation, but possibly corneal donation. Luh will call RN back in "15 minutes or so". Pt is okay to be brought down to the morgue at this time. Addendum: 10/15/16 at 2348 by ALEXANDRA BYRD RN Luh called back @ 2344, further info needed regarding pts hx and condition, final decision has still not been made at this time if pt is a candidate for donation. Luh will call ERICK stroud again. Addendum: 10/15/16 at 2358 by ALEXANDRA BYRD RN Luh from [facility] called at 2357. Pt will not be a candidate for tissue or cornea donation. Addendum: 10/16/16 at 0057 by ALEXANDRA BYRD RN Pts body taken down to morgue by security at 0050.
--- NOTE | 2016-10-16 11:03 | PCM.DC.MEX ---
Discharge Summary Date of Service Oct 16, 2016 Dates of Hospitalization Date of Hospital Admission Oct 13, 2016 at 16:55 Date of Expiration: Oct 15, 2016 Time of Expiration: 21:00 Providers: Admitting Physician: Walker Whitlock DO Primary Care Physician: Barron Doss MD Attending Physician: Walker Whitlock DO Diagnosis at Time of Acute gastrointestinal bleed, likely upper Additional Diagnosis Chronic CVA with left sided-deficits Brief History From the history and physical performed by Dr. Luz Marina Dowd on 10/13/2016: Max Pitt is a 71 year old non-verbal man with past medical history significant for CVA with left sided deficits requiring a PEG tube. History could not be obtained from the patient. He can show limited hand gestures and nod "yes" or "no." The patient was brought in to [facility] ED via EMS from his longterm due to hematemesis and melena and diarrhea that started today. The patient denied any shortness of breath but did note abdominal pain. Per discussion with ED physician the patient's DPOA, his , does not want to proceed with any invasive procedures and would only like to carry on with IV fluids and medications. She would not like to give him any blood products or check labs. The patient is currently under treatment for C. Difficile. In the ED he was noted to be hypotensive and was given one L of NS. Hospital Course Max Pitt is a 71 year old non-verbal man with past medical history significant for CVA with left sided deficits requiring a PEG tube. History could not be obtained from the patient. He can show limited hand gestures and nod "yes" or "no." The patient was brought in to [facility] ED via EMS from his longterm due to hematemesis and melena and diarrhea that started on day of admission. Acute gastrointestinal bleed, likely upper, present on admission -No labs completed as the patient's would not like to proceed with treatment -No blood products were given -Patient admitted to comfort care -Morphine, Ativan, Haldol were given as needed for comfort measures -Stopped normal saline at request of patient's -Benadryl and Tylenol as needed -Continued comfort care measures -Palliative care consulted and followed. Their time and recommendations were appreciated. -Patient on 10/15/2016 at 21:00 after being on comfort care measures since admission to the hospital. Chronic CVA with left sided-deficits -Patient had PEG tube Attending Statement The patient was seen and examined together with Resident/House-staff on 10/16/16 and I agree with the history, exam and plan as outlined in the note above. copies to: Barron Doss MD, Marissa L DO Oct 16, 2016 11:03 Saad Ribera Oct 16, 2016 18:09
== END 2016-10-15 21:00 | disposition expired | DRG 378 ==
LOC: EDBD 14:31 → SED 14:31 → MPC 16:55
PROVIDERS: ADMIT Family Medicine; ATTEND Family Medicine
PROC: 3E0G76Z Introduction of Nutritional Substance into Upper GI, Via Natural or Artificial Opening (ICD-10-PCS; principal; 2016-10-14)
DX: K92.2 Gastrointestinal hemorrhage, unspecified (principal); I69.954 Hemiplegia and hemiparesis following unspecified cerebrovascular disease affecting left non-dominant side; Z79.82 Long term (current) use of aspirin; Z79.01 Long term (current) use of anticoagulants; I69.928 Other speech and language deficits following unspecified cerebrovascular disease; Z66 Do not resuscitate; Z51.5 Encounter for palliative care